=== PATIENT | female | born 1955 | race Caucasian/White ===

== ENCOUNTER 2021-10-12 07:30 | Day surgery (SDC) | payer OTHER ==
[2021-10-09 11:07] LABS: Potassium 4.5 mmol/L (3.5-5.1)
--- NOTE | 2021-10-10 08:55 | EKG ---
Test Date: 2021-10-09 Test Time: 10:22:50 Director Of Early Childhood Education: JOI MEASUREMENT RESULTS: Intervals: Rate: 58 NE: 134 QRSD: 82 QT: 410 QTc: 402 [place]: P: 61 NE: 134 QRS: 60 T: 67 INTERPRETIVE STATEMENTS: Sinus bradycardia Nonspecific T wave abnormality Abnormal ECG No previous ECG available for comparison Electronically Signed On 10-10-21 08:55:06 CDT by Zeb Jara
[2021-10-12] MEDS: Ringers Lactate 1,000 ML IV ONE (08:20)
[2021-10-12] MEDS ORDERED: propofoL 200 MG/20 ML VIAL IV ONE ×2 (08:21)
[2021-10-12] MEDS ORDERED: LIDOCAINE 2% MPF 5 ML VIAL ONE (08:21)
--- NOTE | 2021-10-12 09:41 | ENDO RPT ---
[address], [address] COLONOSCOPY PROCEDURE REPORT EXAM DATE: 10/12/2021 PATIENT NAME: Yadira Rios MR #: [id number] BIRTHDATE: 1955 ATTENDING: Mahamed Felix DR STATUS: outpatient MASTER BARBER: Dinah Shine RN and Alen Jaffe [facility] INDICATIONS: The patient is a 66 yr old Female here for a colonoscopy due to colon cancer screening PROCEDURE PERFORMED: Colonoscopy with biopsy - cold polypectomy MEDICATIONS: Per Anesthesia. ESTIMATED BLOOD LOSS: None CONSENT: The patient understands the risks and benefits of the procedure and understands that these risks include, but are not limited to: sedation, allergic reaction, infection, perforation and/or bleeding. Alternative means of evaluation and treatment include, among others: physical exam, x-rays, and/or surgical intervention. The patient elects to proceed with this endoscopic procedure. DESCRIPTION OF PROCEDURE: During intra-op preparation period all mechanical medical equipment was checked for proper function. Hand hygiene and appropriate measures for infection prevention was taken. Procedure, possible complications, alternatives including, but not limited to possibility of bleeding, perforation, tear, infection, sepsis, need for surgery, need for blood transfusion, were explained to the patient. After the risks, benefits and alternatives of the procedure were thoroughly explained, Informed consent was verified, confirmed and timeout was successfully executed by the treatment team. The patient was placed in the left lateral position. A digital rectal exam was performed and revealed internal hemorrhoids. After appropriate level of anesthesia, the scope was passed. The EC-[id number] ([id number]) endoscope was introduced through the anus and advanced to the cecum, which was identified by both the appendix and ileocecal valve. The quality of the prep was fair. The instrument was then slowly withdrawn as the colon was fully examined. Scope withdrawal time was 11 minutes. COLON FINDINGS: A few smooth sessile polyps ranging between 3-5mm in size with friable surfaces were found at the cecum, ileocecal valve, and in the ascending colon. A polypectomy was performed with cold forceps. The resection was complete, the polyp tissue was completely retrieved and sent to histology. Small internal hemorrhoids were found. Retroflexed views revealed no abnormalities. The scope was then completely withdrawn from the patient and the procedure terminated. ADVERSE EVENTS: There were no complications. IMPRESSIONS: 1. Few sessile polyps ranging between 3-5mm in size were found at the cecum, ileocecal valve, and in the ascending colon; polypectomy was performed in a piecemeal fashion with cold forceps 2. Small internal hemorrhoids RECOMMENDATIONS: 1. follow-up: office 2 week(s) 2. fiber rich diet 3. await biopsy results 4. avoid NSAIDS for 2 weeks 5. Monitor for any evidence of rectal bleeding. 6. yearly hemoquant 7. yearly hemoccult starting in 4 years 8. hemorrhoidal hygiene 9. increase dietary water RECALL: for Colonoscopy, pending biopsy results. Mahamed Felix DR eSigned: Mahamed Felix DR 10/12/2021 9:41 AM cc: CPT CODES: ICD9 CODES: PATIENT NAME: Yadira Rios MR#: [id number]
[2021-10-12 10:15] VITALS: BP 124/68; TEMP 97.1; O2SAT 99
== END 2021-10-12 10:45 | disposition home or self-care (01) ==
LOC: OR 07:30
PROVIDERS: ATTEND Surgery
PROC: 0DBB8ZX Excision of Ileum, Via Natural or Artificial Opening Endoscopic, Diagnostic (ICD-10-PCS; 2021-10-12)
PROC: 0DBK8ZX Excision of Ascending Colon, Via Natural or Artificial Opening Endoscopic, Diagnostic (ICD-10-PCS; 2021-10-12)
PROC: 0DBH8ZX Excision of Cecum, Via Natural or Artificial Opening Endoscopic, Diagnostic (ICD-10-PCS; principal; 2021-10-12 08:45)
DX: Z12.11 Encounter for screening for malignant neoplasm of colon (principal); K64.8 Other hemorrhoids; D12.2 Benign neoplasm of ascending colon; D12.0 Benign neoplasm of cecum; Z20.822 Contact with and (suspected) exposure to COVID-19
CPT/HCPCS: 93005; 80048; 36415; 88305; 45380; U0003; J2704 ×2; J7120